=== PATIENT | male | born 1990 | race Asian ===

== ENCOUNTER 2017-05-04 11:15 | Emergency (ER) | payer SELFPAY ==
[~2017-05-04] VITALS: Ht 162.6 cm; Wt 52.2 kg
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
--- NOTE | 2017-05-04 11:22 | NUR ---
DR PERKINS AT BEDSIDE FOR EVAL.
[2017-05-04] MEDS ORDERED: OLANZAPINE 5 MG TABLET ONE (11:24)
[2017-05-04] MEDS ORDERED: LORAZEPAM 1 MG TABLET ONE (11:25)
[2017-05-04] MEDS ORDERED: LORAZEPAM 1 MG TABLET PO ONE (11:30)
[2017-05-04] MEDS ORDERED: OLANZAPINE 5 MG TABLET PO ONE (11:30)
[2017-05-04 11:36] LABS: EOSINOPHILS % (AUTO) 0.6 % (0.0-6.0); HEMATOCRIT 41 % (39-51); HEMOGLOBIN 13.6 g/dL (13.5-17.5); LYMPHOCYTES # (AUTO) 1.4 /CMM (0.8-4.8); LYMPHOCYTES % (AUTO) 34.8 % (20.0-44.0); MEAN CORPUSCULAR HEMOGLOBIN 29 PG (26.0-33.0); MEAN CORPUSCULAR HGB CONC 33 g/dl (31.0-36.0); MEAN CORPUSCULAR VOLUME 87 fL (80-96); MONOCYTES # (AUTO) 0.3 /CMM (0.1-1.30); MONOCYTES % (AUTO) 6.5 % (2.0-12.0); NEUTROPHILS # (AUTO) 2.3 /CMM (1.8-8.9); NEUTROPHILS % (AUTO) 57.1 % (43.0-81.0); PLATELET COUNT (AUTO) 227 /CMM (150-450); RDW COEFFICIENT OF VARIATION 12.3 (11.5-15.0); RED BLOOD CELL COUNT(AUTO) 4.73 MIL/uL (4.5-6.0)
[2017-05-04 11:53] LABS: CALCIUM, SERUM 9.2 mg/dL (8.5-10.1); CARBON DIOXIDE 28 mmol/L (21-32); CHLORIDE 100 mmol/L (98-107); GLUCOSE 82 mg/dL (74-106); POTASSIUM 3.8 mmol/L (3.5-5.1); SODIUM SERUM 138 mmol/L (136-145); UREA NITROGEN, BLOOD 26 mg/dL (7-18)
[2017-05-04 11:58] LABS: APPEARANCE,URINE Clear (CLEAR); BILIRUBIN,URINE SMALL (NEGATIVE); BLOOD, URINE Negative Ery/uL (NEGATIVE); COLOR,URINE Yellow (YELLOW); KETONES,URINE 80 (NEGATIVE); LEUKOCYTE ESTERASE ,URINE Negative (NEGATIVE); NITRITE, URINE Negative (NEGATIVE); PH,URINE 5.5 (5.0-8.0); PROTEIN,URINE Trace mg/dl (NEGATIVE); UGLUCOSE Negative (NEGATIVE); UROBILINOGEN,URINE 0.2 EU/dL (0.2)
[2017-05-04 11:59] LABS: ACETAMINOPHEN < 10 ug/ml (10-30); ALANINE AMINOTRANSFERASE 19 U/L (12-78); ALBUMIN 4.9 g/dL (3.4-5.0); ALCOHOL, BLOOD < 3 mg/dL (0-0); ALKALINE PHOSPHATASE 53 U/L (46-116); ASPARTATE AMINOTRANSFERASE 23 U/L (15-37); BILIRUBIN,DIRECT 0.2 mg/dL (0.0-0.2); BILIRUBIN,TOTAL 0.8 mg/dL (0.2-1.0); SALICYLATE 1.8 mg/dL (2.8-20.0); TOTAL PROTEIN, SERUM 8.4 g/dL (6.4-8.2)
[2017-05-04 12:05] LABS: BACTERIA,URINE Rare /HPF (None Seen); MUCUS,URINE Few /LPF (None Seen); RBC,URINE NONE SEEN /HPF (0-2); SQUAMOUS EPITHELIAL CELL,UR None Seen /HPF (None Seen); WBC,URINE NONE SEEN /HPF (0-3)
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
--- NOTE | 2017-05-04 18:06 | NUR ---
PT SLEEPING. ON MONITOR W/ STABLE VITALS. AWAITING MD RACHEL.
--- NOTE | 2017-05-04 19:11 | NUR ---
CALLED MAP CLERK [facility] ETA OF 1HR WAS GIVEN.
--- NOTE | 2017-05-04 19:58 | NUR ---
Brianna lopes in ED - 05/04/17 at 2131 by [email or web address] PT REC'D A CUP OF WATER AND IS TOLERATING PO WELL.
--- NOTE | 2017-05-04 20:00 | NUR ---
Brianna lopes in [facility] - 05/04/[address] CORNEJO IS AT THE BEDSIDE.
--- NOTE | 2017-05-04 20:01 | NUR ---
Brianna lopes in ED - 05/04/17 at 2131 by GEOFFREY PT IS RESTING COMFORTABLY W/NO S/S OF PAIN OR DISTRESS.
--- NOTE | 2017-05-04 21:26 | NUR ---
TEVIN RN IN TO SEE PT FOR PSYCH EVAL. UNABLE TO ASSESS STATING PT IS STILL SEDATED.
--- NOTE | 2017-05-04 23:32 | NUR ---
REPORT TO CHARGE NURSE ETTA FOR HOMER.
--- NOTE | 2017-05-05 05:15 | NUR ---
pt ok to be discharged per dr harris. Patient discharged to home in stable condition. Written and verbal after care instructions given. Patient verbalizes understanding of instruction.Patient is awake and alert to self, day, and place pt ambulatory with a steady gait
[2017-05-05 05:16] VITALS: BP 112/71
== END 2017-05-05 05:16 | disposition home or self-care (01) ==
LOC: ER 11:19 → EDBD 11:19 → ER 05-05 05:16
DX: F29 Unspecified psychosis not due to a substance or known physiological condition (principal); F15.10 Other stimulant abuse, uncomplicated
CPT/HCPCS: 36415; 80048-TC; 80076-TC; 80305; 81000-TC; 85025-TC; A4606; G0480; Z7610